=== PATIENT | female | born 1965 | race Caucasian/White ===

== ENCOUNTER 2019-03-25 21:11 | Emergency (ER) | payer OTHER ==
[2019-03-25] MEDS ORDERED: IBUPROFEN 600 MG TABLET (FP) PO ONE ×2 (21:22→21:42)
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
[2019-03-25 21:23] VITALS: BP 113/70; PULSE 77; TEMP 98.2; BMI 32.3
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
== END 2019-03-26 01:01 | disposition home or self-care (01) ==
LOC: JER 21:11 → JERFT 21:11 → JER 03-26 01:01
DX: M54.2 Cervicalgia (principal); M25.511 Pain in right shoulder; M25.552 Pain in left hip; V46.5XXA Car driver injured in collision with other nonmotor vehicle in traffic accident, initial encounter; Y92.414 Local residential or business street as the place of occurrence of the external cause; Y93.89 Activity, other specified; Y99.8 Other external cause status; Z85.3 Personal history of malignant neoplasm of breast
CPT/HCPCS: 72125-TC; 73523-TC-FY; 99282-25